=== PATIENT | female | born 1975 | race Caucasian/White ===

== ENCOUNTER 2016-09-11 10:41 | Emergency (ER) | payer MEDICAID ==
[~2016-09-11] VITALS: Ht 162.6 cm; Wt 81.0 kg
[2016-09-11 10:46] VITALS: BP 131/89
[2016-09-11] MEDS ORDERED: LIDOCAINE HCL 1% 20ML VIAL (Pyxis) INJ MC ONE (12:00)
[2016-09-11] MEDS ORDERED: TETANUS, DIPHTHERIA, PERTUSSIS VAC/PF 0.5ML (>7YR OLD) IM ONE (12:00)
[2016-09-11] MEDS ORDERED: BACITRACIN ZINC OINT UDPKT TOP ONE (12:00)
[2016-09-11] MEDS ORDERED: KETOROLAC 30MG/ML VIAL IM ONE (12:30)
== END 2016-09-11 13:12 | disposition home or self-care (01) ==
LOC: ER 11:16
DX: L02.416 Cutaneous abscess of left lower limb (principal); F31.9 Bipolar disorder, unspecified; F12.10 Cannabis abuse, uncomplicated; F15.10 Other stimulant abuse, uncomplicated; F17.200 Nicotine dependence, unspecified, uncomplicated; Z59.0 Homelessness; Z90.89 Acquired absence of other organs
CPT/HCPCS: 10060; 90471; 90715; 96372; 99284; J1885; J3490; X7700; Z7610